=== PATIENT | female | born 1975 | race Asian ===

== ENCOUNTER 2024-04-12 09:46 | Day surgery (SDC) | payer OTHER ==
[~2024-04-12] VITALS: Ht 154.9 cm; Wt 52.3 kg
[~2024-04-12 09:46] MED LIST: CLARITIN10 MG PO; DOXYCYCLINE HY100 MG PO; IBLOOD GLUCOSE TEST STRIP 1 EA TEST VI PRN; LACTATED RINGER'S 1,000 ML IV SCH; LEVOTHYROXINE25 MCG PO; LIDOCAINE HCL 1% 5 ML SDV INJ ONE; MIDAZOLAM HCL 5 MG/5 ML VIAL IV PRN; NORCO 5-325 TA1 EACH PO; PRENATAL ONE T1 EACH PO; ZOFRAN4 MG PO; fentaNYL citrate 100 MCG/2 ML VIAL IV PRN
[2024-04-12 10:04] VITALS: BP 146/78
[2024-04-12] MEDS ORDERED: MIDAZOLAM HCL 5 MG/5 ML VIAL ONE (11:19)
[2024-04-12] MEDS ORDERED: fentaNYL citrate 100 MCG/2 ML VIAL ONE (11:19)
--- NOTE | 2024-04-12 12:46 | NUR ---
04/12/24 1246 Tarsha Lancaster 1232- PT ARRIVES TO THE PACU WITH A NATURAL AIRWAY. NC IN PLACE WITH 2L O2. PT LAYING ON LEFT SIDE. ABDOMEN IS SOFT AND NONDISTENDED. LR INFUSING IN HER LEFT FOREARM. RESP EVEN AND UNLABORED. PT DOES NOT RESPOND TO VERBAL AND TACTILE STIMULI. ALL MONITORS PUT IN PLACE. 1234- PT PASSING GAS OFF AND ON. PT STILL NONREACTIVE TO VERBAL STIMULI. 1244- PT PASSING LARGE AMOUNTS OF GAS. PT NONREACTIVE TO VERBAL STIMULI. VSS.
[2024-04-12 13:01] VITALS: BP 100/59
--- NOTE | 2024-04-15 11:13 | OR ---
[facility] [address] [place], [place] [address] Signed DATE OF OPERATION: 04/12/2024 SURGEON: Jeremy Chase MD PREOPERATIVE DIAGNOSIS: Family history of colon cancer (father). POSTOPERATIVE DIAGNOSIS: Normal colon to cecum. PROCEDURE: Total colonoscopy to cecum. ANESTHESIA: Intravenous sedation fentanyl 150 mcg and Versed 4 mg. INDICATION: This 48-year-old Swedish woman is a patient of CHAPO Rossi. She is known to have a family history of colon cancer in her father who at the age of 74 with colon cancer. It is uncertain when he contracted the disease. She has no symptoms of bleeding, diarrhea or constipation. No known prior history of colonoscopy that I am aware of. She understands the risk of bleeding, infection, and perforation related to colonoscopy and wished to proceed with screening colonoscopy. FINDINGS: The prep was good. Complete colonoscopy was undertaken of the cecum. Full intubation of the cecum was noted. There was no evidence of polyps, diverticular formation, colitis, or cancer. PROCEDURE IN DETAIL: The patient was brought to the endoscopy suite and placed in lateral decubitus position, given intravenous sedation to the point of slurred speech and nystagmus. Digital rectal examination was normal. An Olympus video colonoscope was passed in the rectum and manipulated throughout the colon ultimately intubating the cecum itself. The ileocecal valve and appendiceal orifice were normal. Scope was withdrawn from that point and examination undertaken showed no evidence of polyps, diverticular formation, colitis, or cancer. Retroflexed view of the rectum was normal as well. The scope was removed. The patient was taken to the recovery room in good condition. Electronically Signed By: JEREMY CHASE MD 04/15/24 1113 PATIENT NAME: BECCA DASILVA OPERATIVE REPORT DATE OF : 75 REPORT #: [id number] PHYSICIAN: JEREMY CHASE MD PCP: WENDI CARDENAS REPORT IS CONFIDENTIAL AND NOT TO BE RELEASED WITHOUT AUTHORIZATION [facility] [address] [place], [place] [address], [place] [address] Signed CONCLUDING DIAGNOSIS: Normal colon to cecum. PLAN: Recommend repeat colonoscopy in 5 years based on family history, sooner if symptoms should occur. MD JOHN Singletary/MODL /[id number] cc: Wendi Cardenas PA-C Copies: WENDI CARDENAS ~ Electronically Signed By: JEREMY CHASE MD 04/15/24 1113 PATIENT NAME: BECCA DASILVA OPERATIVE REPORT DATE OF : 75 REPORT #: [id number] PHYSICIAN: JEREMY CHASE MD PCP: WENDI CARDENAS PAC REPORT IS CONFIDENTIAL AND NOT TO BE RELEASED WITHOUT AUTHORIZATION
== END 2024-04-12 13:15 | disposition home or self-care (01) ==
LOC: DS 09:46
PROVIDERS: ATTEND Surgery
PROC: 0DJD8ZZ Inspection of Lower Intestinal Tract, Via Natural or Artificial Opening Endoscopic (ICD-10-PCS; principal; 2024-04-12 10:45)
DX: Z12.11 Encounter for screening for malignant neoplasm of colon (principal); E03.9 Hypothyroidism, unspecified; Z79.890 Hormone replacement therapy; Z80.0 Family history of malignant neoplasm of digestive organs
CPT/HCPCS: 84703; 99153; G0500; J2250; J3010; J7121

== ENCOUNTER 2024-08-28 19:37 | Emergency (ER) | payer OTHER ==
[~2024-08-28] VITALS: Ht 154.9 cm; Wt 52.0 kg
[~2024-08-28 19:37] MED LIST changes: -IBLOOD GLUCOSE TEST STRIP 1 EA TEST VI PRN; -LACTATED RINGER'S 1,000 ML IV SCH; -LIDOCAINE HCL 1% 5 ML SDV INJ ONE; -MIDAZOLAM HCL 5 MG/5 ML VIAL IV PRN; -fentaNYL citrate 100 MCG/2 ML VIAL IV PRN
[2024-08-28] MEDS ORDERED: prednisoLONE ACETATE 1% 10 ML BTL OS ONE (20:15)
[2024-08-28 20:30] VITALS: BP 162/82
== END 2024-08-28 20:31 | disposition home or self-care (01) ==
LOC: ED 19:37
DX: H11.32 Conjunctival hemorrhage, left eye (principal); Z79.899 Other long term (current) drug therapy
CPT/HCPCS: 99282

== ENCOUNTER 2025-01-08 05:13 | Inpatient (IN) | payer OTHER ==
[~2025-01-08] VITALS: Ht 154.9 cm; Wt 58.6 kg
[2025-01-08 06:14] LABS: LACTIC ACID, BLOOD 2.0 mmol/L (0.4-2.0)
[2025-01-08 06:16] LABS: INFLUENZA B NAA NEGATIVE (NEGATIVE); RESPIRATORY SYNCYTIAL VIR NAA NEGATIVE (NEGATIVE)
[2025-01-08 06:18] LABS: BASOPHILS 0.3 % (0.1-1.2); EOSINOPHILS 1.7 % (0.7-5.8); LYMPHOCYTES 11.5 % (19.3-51.7); MCH 30.7 PG (25.6-32.2); MCHC 33.0 g/dL (32.2-35.5); MCV 92.8 fL (79.4-94.8); MONOCYTES 7.9 % (4.7-12.5); NEUTROPHILS 78.2 % (34.0-71.1); RBC 5.02 M/uL (3.93-5.22)
[2025-01-08 06:28] LABS: ALT (SGPT) 28.0 U/L (14-59); AST (SGOT) 35.0 U/L (15-37); GLOMERULAR FILTRATION RATE,EST 84.0 mL/min (>60); PROTEIN, TOTAL 7.4 g/dL (6.4-8.2); UREA NITROGEN 10.0 mg/dL (7-18)
[2025-01-08] MEDS ORDERED: SODIUM CHLORIDE 0.9% 1,000 ML IV SCH ×2 (06:30→10:15)
[2025-01-08] MEDS ORDERED: AZITHROMYCIN 500 MG in DEXTROSE 5% 250 ML IV ONE (06:30)
[2025-01-08] MEDS ORDERED: ACETAMINOPHEN 325 MG TAB PO PRN (10:15)
[2025-01-08] MEDS ORDERED: BENZONATATE 100 MG CAP PO PRN (10:15)
[2025-01-08] MEDS ORDERED: guaiFENesin 600 MG TABCR PO PRN (10:15)
[2025-01-08 10:44] VITALS: BP 155/92
[2025-01-08] MEDS ORDERED: ALBUTEROL SULFATE 0.083% 3 ML VIAL ONE (11:03)
[2025-01-08] MEDS ORDERED: VENTOLIN HFA18 GM INH (11:05)
[2025-01-08] MEDS ORDERED: MONTELUKAST SOD10 MG PO (11:06)
[2025-01-08] MEDS ORDERED: ALBUTEROL SULFATE 0.083% 3 ML VIAL INH PRN (11:15)
[2025-01-08] MEDS ORDERED: PHARMACY RENAL DOSE ADJUSTMENT 1 DOSE MISC PO SCH (12:00)
--- NOTE | 2025-01-08 13:17 | NUR ---
MED REC COMPLETE
--- NOTE | 2025-01-08 13:57 | NUR ---
PT LAYING UP IN BED AT THIS TIME, PT TEMP WAS ELEVATED AND WAS GIVEN PRN TYLENOL (SEE EMAR). PT TOLERATED WELL AND HAS NO FURTHER CONCERNS AT THIS TIME.
--- NOTE | 2025-01-08 15:18 | NUR ---
ALERT AND ORIENTED IN BED. OXYGEN IN PLACE. SPOUSE IN ROOM, BOTH ANSWER QUESTIONS. DEMOGRAPHICS VERIFIED. PATIENT LIVES IN HOUSE WITH , NO STAIRS. SHE HAS NO DME. PATIENT DRIVES. BOTH PATIENT AND SPOUSE DENY ANY FINANCIAL DIFFICULTIES AT THIS TIME. DENY CM NEEDS. PLANNING OT RETURN HOME WHEN MEDICALLY READY.
[2025-01-08 16:00] VITALS: BP 127/67
[2025-01-08 16:01] VITALS: BP 127/67
[2025-01-08 17:44] VITALS: BP 123/68
--- NOTE | 2025-01-08 17:45 | NUR ---
HOURLY ROUNDING. PATIENT HUSBAMD AT BEDSIDE, NO REQUEST FROM PATIENT AT THIS TIME. PATIENT ASKED FOR STRAWS FOR THE PATIENT TO DRINK HER MILK, STRAW FOR MILK WAS GIVEN. CALL LIGHT PLACED WITHIN REACH
[2025-01-08 18:08] VITALS: BP 123/68
--- NOTE | 2025-01-08 18:33 | NUR ---
PT LAYING IN BED AT THIS TIME, PT DENIES NEEDS AT THIS TIME AND INFORMED ABOUT SHIFT CHANGE. PT CALL LIGHT IN REACH AND IN ROOM AT THIS TIME.
[2025-01-08 20:19] VITALS: BP 151/82
[2025-01-08] MEDS ORDERED: MELATONIN 3 MG TAB PO PRN (21:00)
--- NOTE | 2025-01-08 21:27 | NUR ---
PT C/O WORSENED SHORTNESS OF BREATH, WORK OF BREATHING INCREASED. CRACKLES THROUGHOUT. RT NOTIFIED. DISCUSSED WITH MD AND RT, POSSIBLY FLUID UP. STOPPED IV FLUIDS. BREATHING TREATMENT ADMINISTERED. CALL LIGHT IN REACH
--- NOTE | 2025-01-08 23:12 | NUR ---
PT RESTING IN BED WITH EYES CLOSED, RISE AND FALL OF CHEST OBSERVED. CALL LIGHT IN REACH
--- NOTE | 2025-01-08 23:26 | EKG ---
[facility] [address] [facility] [place] [address] Signed Sinus tachycardia Otherwise normal ECG No previous ECGs available Confirmed by Prabhakar Ruano MD () on 01/08/2025 11:26:00 PM Electronically Signed By: PRABHAKAR RUANO MD 01/08/25 2326 PATIENT NAME: BECCA DASILVA [facility] Electrocardiogram DATE OF : 75 PHYSICIAN: PRABHAKAR RUANO MD REPORT #: [id number] REPORT IS CONFIDENTIAL AND NOT TO BE RELEASED WITHOUT AUTHORIZATION
[2025-01-09] VITALS (10 sets, daily range): BP systolic 131–143; BP diastolic 72–81
--- NOTE | 2025-01-09 00:14 | NUR ---
PT RESTING IN BED WITH EYES CLOSED, SPO2 95% ON 4L. [facility], SUPPORTIVE INROOM.
--- NOTE | 2025-01-09 01:27 | NUR ---
GIVEN TYLENOL AND MUCINEX PER REQUEST. ALSO PROVIDED WARM BLANKET. NO OTHER NEEDS. TITRATED O2 DOWN TO 3L. NO OTHER NEEDS, [facility]
--- NOTE | 2025-01-09 03:21 | NUR ---
PT RESTING WITH EYES CLOSED, RISE AND FALL OF CHEST OBSERVED. CALL LIGHT IN REACH
[2025-01-09 05:21] LABS: BASOPHILS 0.2 % (0.1-1.2); EOSINOPHILS 0.6 % (0.7-5.8); LYMPHOCYTES 10.9 % (19.3-51.7); MCH 30.4 PG (25.6-32.2); MCHC 32.8 g/dL (32.2-35.5); MCV 92.9 fL (79.4-94.8); MONOCYTES 7.5 % (4.7-12.5); NEUTROPHILS 80.5 % (34.0-71.1); RBC 4.37 M/uL (3.93-5.22)
--- NOTE | 2025-01-09 05:22 | NUR ---
VITALS, AM ASSESSMENT. PT REPORTS WOB MILDLY EASIER. STILL SATTING 91% ON 4L. NO OTHER NEEDS, CALL LIGHT IN REACH
[2025-01-09 05:39] LABS: ALT (SGPT) 44.0 U/L (14-59); AST (SGOT) 47.0 U/L (15-37); GLOMERULAR FILTRATION RATE,EST 112.0 mL/min (>60); PHOSPHORUS, INORGANIC 3.0 mg/dL (2.5-4.9); PROTEIN, TOTAL 6.9 g/dL (6.4-8.2); UREA NITROGEN 8.0 mg/dL (7-18)
--- NOTE | 2025-01-09 06:33 | NUR ---
CALL LIGHT ANSWERED. SPO2 90% WITH 4L OXYGEN BY NC IN PLACE AT REST. SBA TO BSC FOR VOID, TITRATED OXYGEN TO 7L NC TO MAINTAIN SATURATIONS WNL, SATURATIONS 87% WITH 7L OXYGEN IN PLACE WHEN pt TRANSFERS BACK TO BED. ALLOWED TO REST, 5L OXYGEN BY NC IN PLACE, SPO2 91%. BREATHING TREATMENT STARTED BY THIS RN AT THIS TIME RT IN ER. PRIMARY RN NOTIFIED. TOOTHBRUSH PROVIDED FOR pt TO COMPLETE ORAL CARE PER REQUEST. AT BEDSIDE.
--- NOTE | 2025-01-09 06:43 | NUR ---
CALL LIGHT ANSWERED. BREATHING TREATMENT COMPLETE, SPO2 NOW 93% WITH 5L OXYGEN BY NC, pt STATES THAT SHE FEELS BETTER. pt AND DENY ADDITIONAL NEEDS.
--- NOTE | 2025-01-09 07:00 | NUR ---
CALL LIGHT ANSWERED. pt REQUESTING TYLENOL, COMPLAINS OF HEADACHE AND THINKS SHE MIGHT HAVE A FEVER. AFEBRILE AT THIS TIME. PRN TYLENOL ADMINISTERED. OXYGEN TITRATED TO 4L, SPO2 93%.
[2025-01-09] MEDS ORDERED: MAGNESIUM CHLORIDE 64 MG TABCR PO ONE (08:00)
--- NOTE | 2025-01-09 08:07 | NUR ---
HOURLY ROUNDING. PATIENT CALLED, AND REPORTED PATIENT IS FEELING WEAK. I ASKED PATIENT IF SHE IS FEELING NAUSEA OR IN PAIN, RESPONSE WAS NO JUST VERY WEAK. CHARGE NURSE HAS BEEN NOTIFIED. VITALS HAVE BEEN COMPLETED
--- NOTE | 2025-01-09 08:15 | NUR ---
PATIENT 99.4 AFTER TYLENOL, VERBALIZES NOT FEELING WELL. 4L [address] RUANO IN TO SEE PATIENT.
--- NOTE | 2025-01-09 08:54 | NUR ---
HOURLY ROUNDING. PATIENT NEEDED TO USE THE RESTROOM. PATIENT 02 DESTATED. NURSE HAS BEEN NOTIFIED
[2025-01-09] MEDS ORDERED: AZITHROMYCIN 500 MG in DEXTROSE 5% 250 ML IV SCH (09:00)
[2025-01-09] MEDS ORDERED: MONTELUKAST SODIUM 10 MG TAB PO SCH (09:00)
[2025-01-09] MEDS ORDERED: LEVOTHYROXINE SODIUM 25 MCG TAB PO SCH (09:00)
[2025-01-09] MEDS ORDERED: ENOXAPARIN SODIUM 40 MG/0.4 ML SYR SUB-Q SCH (09:00)
--- NOTE | 2025-01-09 09:56 | NUR ---
UR CLINICAL REVIEW: LAURA-JAZMINE MCG REVIEW MEETS INPT FOR [facility] WITH NEW NEED FOR SUPPLEMENT OXYGEN [facility] INPT 01/08/25 @ 1010 ORDER MATCHES REG CLINICAL FAXED TO [employer] [facility] FOR AUTH REVIEW ANTICIPATE 1-2 DAY OF TREATMENT PRIOR TO DC 01/10/25 DISCHARGE REVIEW
--- NOTE | 2025-01-09 10:04 | NUR ---
PT NOT AVAILABLE FOR VISIT. PROVIDED PRAYER.
--- NOTE | 2025-01-09 10:15 | NUR ---
PT IN CHAIR AT THIS TIME PT EDUCATED ON DIAGNOSIS, PT GIVEN ABX IV ORDERD AND IS WITH RT DOING A BREATHING TREATMENT. PT TOLERATING WELL CALL LIGHT IN REACH.
[2025-01-09] MEDS ORDERED: IBUPROFEN 600 MG TAB PO PRN (12:15)
--- NOTE | 2025-01-09 12:15 | NUR ---
PT SITTING UP IN CHAIR AT THIS TIME, PT DENIES ANY CURRENT NEEDS. PT IN ROOM SITTING ON COUCH. PT HAS 4L NC IN PLACE AT THIS TIME WITH CALL LIGHT IN REACH.
--- NOTE | 2025-01-09 12:37 | NUR ---
NO KNOWN CM NEEDS. PLAN TO DC TO HOME WHEN MEDICALLY READY.
--- NOTE | 2025-01-09 13:08 | NUR ---
HOURLY ROUNDING. PATIENT SITTING IN RECLINER, SHE ATE MORE FOOD COMPARED TO HER LUNCH. NO REQUEST FROM PATIENT AT THSI TIME
--- NOTE | 2025-01-09 13:50 | NUR ---
REPORT RECIEVED FROM BRODERICK JULES. PATIENT SITTING UP IN HER CHAIR AND REPORTING 5/10 "BODY ACHES". TEMP TAKEN AND WAS 98.5, WARM BLANKETS PROVIDED.
[2025-01-09] MEDS ORDERED: ALBUTEROL/IPRATROPIUM 3 ML NEB INH SCH (14:00)
--- NOTE | 2025-01-09 14:10 | NUR ---
PATIENT MEDICATED PER EMAR FOR BODY ACHE PAIN. PATIENT WITHOUT FURTHER NEEDS AT THIS TIME. CALL LIGHT AND PERSONAL BELONGINGS ARE WITHIN REACH.
--- NOTE | 2025-01-09 16:03 | NUR ---
PATIENT SITTING UP IN CHAIR WITH HER AT BEDSIDE. PATIENT DENIES ANY NEEDS AT THIS TIME. CALL LIGHT AND PERSONAL BELONGINGS ARE WITHIN REACH.
--- NOTE | 2025-01-09 17:15 | NUR ---
PATIENT SITTING UP IN HER CHAIR WITH HER AT BEDSIDE. PATIENT WITHOUT ANY NEEDS AT THIS TIME. CALL LIGHT AND PERSONAL BELONGINGS ARE WITHIN REACH.
--- NOTE | 2025-01-09 18:21 | NUR ---
PATIENT IS IN HER CHAIR AT THIS TIME, RESEARCH PROGRAM INTERNSHIP CHARTED VITALS AND I&O'S, CALL LIGHT WITH IN REACH AND IN THE ROOM. NOTHING ELSE NEEDED AT THIS TIME.
--- NOTE | 2025-01-09 18:57 | NUR ---
PATIENT MEDICATED PER EMAR. PATIENT SITTING UP IN CHAIR WATCHING A MOVIE ON HER LAPTOP. PATIENT IV FLUSHED WITH 10ML OF NS, DRESSING IS INTACT. ABX INFUSING PER ORDER. PATIENT WITHOUT FURTHER NEEDS AT THIS TIME. CALL LIGHT AND PERSONAL BELONGINGS ARE WITHIN REACH.
--- NOTE | 2025-01-09 20:22 | NUR ---
STRAIGHT LINE EDGER OBTAINED VITALS. NO NEW I&O AT THIS TIME. PT STATES NO NEEDS AND CALL LIGHT WITHIN REACH. IN ROOM.
--- NOTE | 2025-01-09 20:53 | NUR ---
CALL LIGHT ANSWERED. PT STATED SHE FELT LIKE SHE HAD A FEVER AND COMPLAINED OF A HEADACHE. TRACK LAMINATING MACHINE TENDER OBTAINED PT ORAL TEMP. ORAL TEMP IS 98.6. RN NOTIFED.
--- NOTE | 2025-01-09 20:54 | NUR ---
PATIENT SITTING UPRIGHT IN CHAIR, EYES OPEN, CHEST RISE EQUAL AND UNLABORED. PATIENT DENIES CONCERNS AT THIS TIME. PATIENT BELONGINGS AND CALL LIGHT IN REACH.
--- NOTE | 2025-01-09 21:54 | NUR ---
PATIENT REPORTING 5/10 HEADACHE. PRN PAIN MEDICATION ADMINISTERED PER PATIENT REQUEST. PATIENT UP FROM CHAIR USING MINIMAL SBA TO BED. PATIENT OSCAR WELL. PATIENT HAS NO FURTHER NEEDS AT THIS TIME. CALL LIGHT IN REACH.
--- NOTE | 2025-01-09 22:00 | NUR ---
PATIENT LAYING IN BED, PRESENT. EYES OPEN, CHEST RISE EQUAL AND UNALBORED. ASSESSMENT COMPLETE. PATIENT REPORTS 5/10 HEAD PAIN, PRN MEDICATION ADMINISTERED. PATIENT DENIES FURTHER CONCERNS. PERSONAL BELONGINGS AND CALL LIGHT IN REACH.
--- NOTE | 2025-01-09 23:52 | NUR ---
PATIENT IN BED, EYES CLOSED, CHEST RISE EQUAL AND UNLABORED. CPOX IN PLACE AND IN NORMAL LIMITS. NO APPARENT CONCERNS NOTED AT THIS TIME, IN ROOM WELL. CALL LIGHT AND PERSONAL ITEMS IN REACH.
[2025-01-10] VITALS (11 sets, daily range): BP systolic 120–141; BP diastolic 62–88
--- NOTE | 2025-01-10 02:31 | NUR ---
PATIENT IN BED WITH EYES OPEN, CHEST RISE EQUAL AND UNLABORED. ASSESSMENT COMPLETED, SCHEDULED MEDICATIONS ADMINISTERED, PATIENT TOLERATED WELL. PATIENT USED ACAPELLA WITH RN IN ROOM. PATIENT REPORTS 4/10 PAIN AND REQUESTS MEDICATION. PRN MEDICATION ADMINISTERED. PATIENT DENIES FURTHER CONCERNS AT THIS TIME. CALL LIGHT AND PERSONAL BELONGINGS IN REACH. CPOX IN PLACE.
--- NOTE | 2025-01-10 04:00 | NUR ---
PATIENT IN BED WITH HOB RAISED, EYES OPEN, CHEST RISE EQUAL AND UNLABORED, CPOX IN PLACE. PATIENT DENIES CONCERNS AT THIS TIME, PRESENT AT BEDSIDE. CALL LIGHT AND PERSONAL BELONGINGS IN REACH.
[2025-01-10 05:28] LABS: BASOPHILS 0.2 % (0.1-1.2); EOSINOPHILS 1.8 % (0.7-5.8); LYMPHOCYTES 10.6 % (19.3-51.7); MCH 30.3 PG (25.6-32.2); MCHC 32.6 g/dL (32.2-35.5); MCV 93.0 fL (79.4-94.8); MONOCYTES 7.3 % (4.7-12.5); NEUTROPHILS 79.9 % (34.0-71.1); RBC 4.45 M/uL (3.93-5.22)
[2025-01-10 05:44] LABS: ALT (SGPT) 63.0 U/L (14-59); AST (SGOT) 58.0 U/L (15-37); GLOMERULAR FILTRATION RATE,EST 108.0 mL/min (>60); PROTEIN, TOTAL 7.1 g/dL (6.4-8.2); UREA NITROGEN 7.0 mg/dL (7-18)
--- NOTE | 2025-01-10 06:11 | NUR ---
PATIENT IN BED WITH HOB RAISED, EYES OPEN, CHEST RISE EQUAL AND UNLABORED. PATIENT DENIES CONCERNS AT THIS TIME. CPOX IN PLACE. IV FLUIDS INFUSING WITHOUT DIFFICULTY. PERSONAL ITEMS AND CALL LIGHT IN REACH.
--- NOTE | 2025-01-10 07:26 | NUR ---
REPORT RECIEVED FROM BRODERICK ADHIKARI AND BRODERICK GANNON. PATIENT RESTING IN BED WITH HER EYES CLOSED. EVEN AND UNLABORED RESPIRATIONS NOTED. PATIENT IS 95% ON 5L NC, CPOX AT BEDSIDE. CALL LIGHT AND PERSONAL BELONGINGS ARE WITHIN REACH.
--- NOTE | 2025-01-10 07:59 | NUR ---
DECREASED O2 TO 4 LPM.
--- NOTE | 2025-01-10 08:08 | NUR ---
RT AT BEDSIDE. FRESH COFFEE PROVIDED TO PATIENT'S AND FRESH ICE WATER PROVIDED TO PATIENT. CALL LIGHT AND PERSONAL BELONGINGS ARE WITHIN REACH.
--- NOTE | 2025-01-10 08:16 | NUR ---
PATIENT IN BED AT THIS TIME. TACK CUTTER OFFERED PATIENT TO GET IN CHAIR FOR BREAKFAST, PATIENT REFUSED. CALL LIGHT WITHIN REACH, NO FURTHER NEEDS AT THIS TIME.
--- NOTE | 2025-01-10 08:34 | NUR ---
PATIENT IN BED AT THIS TIME. LPN MEDICAL ASSISTANT ASSISTED PATIENT TO BATHROOM AND THEN TO CHAIR. LPN MEDICAL ASSISTANT CHANGED PATIENTS LINENS. CALL LIGHT WITHIN REACH, NO FURTHER NEEDS.
--- NOTE | 2025-01-10 09:15 | NUR ---
PATIENT MEDICATED PER EMAR. PATIENT REPORTS PAIN WITH IV INFUSION AND STATES "THEY MADE IT GO SLOWER YESTERDAY AND IT FELT BETTER". IV ABX RATE SLOWED DOWN TO 150ML/HR, PATIENT TOLERATING WELL. GEORGETTE WITH PHARMACY NOTIFIED AND STATES IT'S OKAY TO INFUSE ABX AT A SLOWER RATE. PATIENT WITH AT BEDSIDE WITHOUT ANY NEEDS. CALL LIGHT AND PERSONAL BELONGINGS ARE WITHIN REACH. PATIENT IS 91% ON 4L NC, CPOX AT BEDSIDE.
--- NOTE | 2025-01-10 10:12 | NUR ---
PATIENT IN BED AT THIS TIME. INVESTMENT UNDERWRITER CHARTED VITALS AND I&O'S. CALL LIGHT WITHIN REACH, NO FURTHER NEEDS AT THIS TIME.
--- NOTE | 2025-01-10 10:15 | NUR ---
NEXT ABX STARTED, INFUSING AT 150ML/HR, PATIENT TOLERATING WELL. PATIENT WITH HER AT BEDSIDE AND WITHOUT ANY NEEDS AT THIS TIME. CALL LIGHT AND PERSONAL BELONGINGS ARE WITHIN REACH. PATIENT IS 92% ON 4L NC, CPOX AT BEDSIDE.
--- NOTE | 2025-01-10 10:20 | NUR ---
Spoke with Nolberto. She denies needs. Feeling better today, but feels very weak. Spouse in room.
--- NOTE | 2025-01-10 11:07 | NUR ---
OT AND RT IN WORKING WITH PATIENT
--- NOTE | 2025-01-10 11:53 | NUR ---
PATIENT ABX STARTED AT THIS TIME. ABX STARTED LATE DUE TO PREVIOUS ABX INFUSION RATE SLOWED DOWN DUE TO PATIENT NOT TOLERATING ORDERED RATE. PATIENT WITHOUT FURTHER NEEDS AT THIS TIME. PATIENT AT BEDSIDE. CALL LIGHT AND PERSONAL BELONGINGS ARE WITHIN REACH.
--- NOTE | 2025-01-10 12:37 | NUR ---
DISCHARGE REVIEW: CONTINUED NEED FOR OXYGEN, IV ANTIBIOTICS, CULTURES PENDING. CHEST CT TO BE COMPLETED TODAY. PLANS TO DC TO HOME WHEN MEDICALLY READY. ANTICIPATING 1-2 MORE DAYS INPT CARE. POTENTIAL DC 01/11-01/12/25 CT SCAN TO BE COMPELTED TODAY, RESPIRATORY THERAPY INVOLVED IN CARE.
--- NOTE | 2025-01-10 12:42 | NUR ---
pt sitting up in chair with in room. pt c/0 headache, med given as requested. no other requests at this time. call light within reach.
--- NOTE | 2025-01-10 13:12 | NUR ---
PATIENT IS IN HER CHAIR AT THIS TIME, IN THE ROOM, MARICHUY PEREZ AND I CHARTED VITALS AND I&O'S, CALL LIGHT WITH IN REACH AND NOTHING ELSE NEEDED AT THIS TIME.
--- NOTE | 2025-01-10 13:26 | NUR ---
PATIENT REPORTS STILL HAVING A HEADACHE WITHOUT ANY RELIEF FROM PREVIOUS MEDICATION ADMINISTRATION. PRN TYLENOL GIVEN AT THIS TIME. PATIENT DENIES ANY VISUAL CHANGES. PATIENT AND WITHOUT FURTHER NEEDS AT THIS TIME. PATIENT IS 94% ON 4L NC, CPOX AT BEDSIDE. CALL LIGHT AND PERSONAL BELONGINGS ARE WITHIN REACH.
--- NOTE | 2025-01-10 14:45 | NUR ---
PATIENT STILL WAITING FOR CT. IMAGING CALLED AND STATES THEY HAVE BEEN BUSY WITH ER BUT WILL BE UP TO GET PATIENT "IN LIKE 10 MINUTES". PATIENT PLACED ON PORTABLE OXYGEN TANK FOR TRANSPORT TO IMAGING. PATIENT ALSO REPORT HER HEADACHE "IS GETTING BETTER". PATIENT AT BEDSIDE AND BOTH ARE WITHOUT ANY NEEDS AT THIS TIME. CALL LIGHT AND PERSONAL BELONGINGS ARE WITHIN REACH.
--- NOTE | 2025-01-10 14:57 | NUR ---
VISITED WITH DURING SPIRITUAL CARE ROUNDS. PT NOT AVAILABLE FOR VISIT. SENIOR ANALYTIC CONSULTANT PROVIDED SUPPORTIVE PRESENCE, PRAYER. DECLINED JET DYEING MACHINE TENDER VISIT FOR TODAY.
--- NOTE | 2025-01-10 15:55 | NUR ---
PATIENT SITTING UP IN HER CHAIR WITH HER AT BEDSIDE. PATIENT DENIES ANY PAIN AT THIS TIME. PATIENT IS 95% ON 3L NC, CPOX AT BEDSIDE. PATIENT WITHOUT FURTHER NEEDS AT THIS TIME. CALL LIGHT AND PERSONAL BELONGINGS ARE WITHIN REACH.
--- NOTE | 2025-01-10 17:40 | NUR ---
PATIENT REPORTING FEELING HER "HEADACHE COMING ON AGAIN". LET PATIENT KNOW THAT PRN MEDICATIONS AREN'T DUE FOR ANOTHER HOUR, BUT WILL BRING THEM IN WHEN THEY ARE DUE. OFFERED PATIENT A HEAT OR ICE PACK, BUT PATIENT DECLINED. CRACKERS GIVEN TO PATIENT PER REQUEST. PATIENT AT BEDSIDE. PATIENT CONTINUES TO SAT AT 95% ON 3L NC, CPOX AT BEDSIDE. PATIENT WITHOUT FURTHER NEEDS AT THIS TIME. CALL LIGHT AND PERSONAL BELONGINGS ARE WITHIN REACH.
--- NOTE | 2025-01-10 18:21 | NUR ---
PATIENT IN BED AT THIS TIME. VOCATIONAL TRAINING INSTRUCTOR CHARTED VITALS AND I&O'S. CALL LIGHT WITHIN REACH, NO FURTHER NEEDS AT THIS TIME.
--- NOTE | 2025-01-10 18:30 | NUR ---
PATIENT MEDICATED PER EMAR. PATIENT IS 94% ON 3L NC, CPOX AT BEDSIDE. PATIENT WITHOUT FURTHER NEEDS AT THIS TIME. CALL LIGHT AND PERSONAL BELONGINGS ARE WITHIN REACH.
--- NOTE | 2025-01-10 19:39 | NUR ---
PATIENT SITTING UPRIGHT IN CHAIR, IV INFUSION COMPLETED. SITE SALINE LOCKED WITHOUT ISSUE. PATIENT DENIES CONCERNS AT THIS TIME. CPOX IN PLACE. PERSONAL BELONGINGS AND CALL LIGHT IN REACH.
[2025-01-10] MEDS ORDERED: BUDESONIDE 0.5 MG/2 ML VIAL INH SCH (20:00)
--- NOTE | 2025-01-10 20:45 | NUR ---
"MIGUEL" IS CURRENTLY ON A 3L NC W/ A BUBBLER. SHE COMPLETED THE DUONEB FOLLOWED BY THE DOUBLE DOSE OF PULMICORT. THEN IPV WITH MUCOMYST, FOLLOWED BY CORNET LEVEL 5. "MIGUEL" HAS COPIOUS ORAL SECRETIONS DURING HER NEBULIZERS AND IPV.
--- NOTE | 2025-01-10 21:02 | NUR ---
PROGRAM CLERK OBTAINED VITALS AND INTAKE. NO NEW OUTPUT AT THIS TIME. PROGRAM CLERK SBA PT FROM CHAIR TO BED. PT STATES NO FURTHER NEEDS AT THIS TIME. CALL LIGHT WITHIN REACH AND IN ROOM.
--- NOTE | 2025-01-10 21:58 | NUR ---
PATIENT IN BED WITH HOB RAISED, EYES OPEN, CHEST RISE EQUAL AND UNLABORED, CPOX IN PLACE. ASSESSMENT COMPLETE, IV SITES ASSESSED AND FLUSHED. PATIENT DENIES CONCERNS AT THIS TIME. PERSONAL BELONGINGS, CALL LIGHT, INCENTIVE SPIROMETER AND ACCAPELA IN REACH.
[2025-01-11] VITALS (10 sets, daily range): BP systolic 113–136; BP diastolic 61–80
--- NOTE | 2025-01-11 00:11 | NUR ---
PATIENT IN BED, EYES CLOSED, CHEST RISE EQUAL AND UNLABORED. CPOX IN PLACE, INCENTIVE SPIROMETER AND ACCAPELA IN REACH. PERSONAL BELONGINGS AND CALL LIGHT IN REACH. AT BEDSIDE. NO APPARENT NEEDS NOTED AT THIS TIME.
--- NOTE | 2025-01-11 01:30 | NUR ---
CALL LIGHT ANSWERED. PATIENT IN BED WITH HOB RAISED, EYES OPEN, CHEST RISE EQUAL AND UNLABORED, CPOX IN PLACE. IS AND ACCAPELA, PERSONAL BELONGINGS AND CALL LIGHT IN REACH OF PATIENT. AT BEDSIDE. PATIENT REPORTS 4/10 HEAD PAIN, ADMINISTERED PRN MEDICATION ORDERED. VITAL SIGNS COMPLETE. PATIENT DENIES FURTHER CONCERNS AT THIS TIME.
--- NOTE | 2025-01-11 03:16 | NUR ---
CALL LIGHT ANSWERED. PATIENT REPORTS 4/10 HEADACHE PAIN. PRN PAIN MEDICATION ADMINISTERED PER PATIENT REQUEST. PATIENT HAS NO FURTHER NEEDS. CALL LIGHT IN REACH.
--- NOTE | 2025-01-11 04:05 | NUR ---
PATIENT IN BED, EYES CLOSED, CHEST RISE EVEN AND UNLABORED, CPOX IN PLACE. CALL LIGHT, IS, AND PERSONAL BELONGINGS WITHIN REACH. AT BEDSIDE. NO APPARENT NEEDS NOTED AT THIS TIME.
[2025-01-11 05:12] LABS: BASOPHILS 0.2 % (0.1-1.2); EOSINOPHILS 3.4 % (0.7-5.8); LYMPHOCYTES 10.9 % (19.3-51.7); MCH 30.6 PG (25.6-32.2); MCHC 32.7 g/dL (32.2-35.5); MCV 93.6 fL (79.4-94.8); MONOCYTES 8.9 % (4.7-12.5); NEUTROPHILS 76.4 % (34.0-71.1); RBC 4.21 M/uL (3.93-5.22)
[2025-01-11 05:30] LABS: ALT (SGPT) 37.0 U/L (14-59); AST (SGOT) 30.0 U/L (15-37); GLOMERULAR FILTRATION RATE,EST 107.0 mL/min (>60); PROTEIN, TOTAL 6.8 g/dL (6.4-8.2); UREA NITROGEN 9.0 mg/dL (7-18)
--- NOTE | 2025-01-11 05:33 | NUR ---
RESIDENTIAL PLUMBER OBTAINED VITALS AND I&O. ICE WATER REFILLED. PT STATES NO FURTHER NEEDS AT THIS TIME. CALL LIGHT WITHIN REACH AND IN ROOM.
--- NOTE | 2025-01-11 05:38 | NUR ---
PATIENT IN BED WITH HOB RAISED, EYES OPEN, CHEST RISE EQUAL AND UNLABORED. PATIENT DENIES CONCERNS AT THIS TIME. CPOX IN PLACE. PERSONAL BELONGINGS, CALL LIGHT, IS, AND ACCAPELA IN REACH OF PATIENT. AT BEDSIDE.
--- NOTE | 2025-01-11 07:33 | NUR ---
In with pt for introductions and to update white board at about 0655 hours. Pt is resting with eyes closed, supine in bed, breathing is regular, even, and non-labored. Call light in reach. Pt's visitor/family is resting on couch in room with back to the door. White board updated. Pt report received from BRODERICK Najera and BRODERICK Guerrero at about 0702 hours.
--- NOTE | 2025-01-11 08:14 | NUR ---
PATIENT IS IN HER BED AT THIS TIME, WAS HELPING HER BRUSH HER TEETH AND CORPORATE SAFETY DIRECTOR GOT PATIENT A WASH CLOTH TO WASH HER FACE, FRESH WATER AND SOME EXTRA STRAWS. CALL LIGHT WITH IN REACH AND NOTHING ELSE NEEDED AT THIS TIME.
--- NOTE | 2025-01-11 09:00 | NUR ---
While in with pt for medication administration, pt was receiving treatment from RT. Once that was complete, 1PA SBA as pt transferred from bed to chair. Pt complains only that her head hurts. I had encouraged her earlier during assessment to increas her water intake, which she stated she understands but states that getting up to go to the bathroom makes her tired. Offered to bring the BSC out if she does start having to void more often, then spoke with Silvino from RT. Silvino advised that we can increase her Oxygen via NC to 6lpm with activity and to give it a minute once we increase it before having her move so it can 'build up'. He would like her to be on 2 to 3 lpm while at rest. He advised this will allow her to work more with PT without causing her to get SOB so quickly. Pt advised of this update. at bedside. Pt was medicated with motrin per jacob.
--- NOTE | 2025-01-11 09:06 | NUR ---
PATIENT IS IN HER CHAIR AT THIS TIME, BRODERICK MCQUEEN ASSISTED HER TO THE CHAIR, PULLED OUT THE BEDSIDE COMMODE FOR HER. DIMPLING MACHINE OPERATOR ASSISTED BACK TO HER CHAIR AFTER, CAHRTED VITALS AND I&O'S, GOT FRESH WATER FOR PATIENT, IN ROOM. CALL LIGHT WITH IN REACH AND NOTHING ELSE NEEDED AT THIS TIME.
--- NOTE | 2025-01-11 09:38 | NUR ---
IV INFUSION COMPLETE. IV SITE FLUSHED WITH 10 ML NORMAL SALINE AND IS SALINE LOCKED. IV DRESSING IS CLEAN, DRY, AND INTACT. PT AND RT ARE IN THE ROOM AT THIS TIME AND GOING TO WORK WITH THE PATIENT. PATIENT IS IN THE ROOM. PATIENT AND FAMILY STATED NO FURTHER NEEDS AT THIS TIME. CALL LIGHT AND PERSONAL BELONGINGS ARE WITHIN REACH.
[2025-01-11] MEDS ORDERED: ALBUTEROL/IPRATROPIUM 3 ML NEB INH SCH (12:00)
--- NOTE | 2025-01-11 12:40 | NUR ---
No needs from . Per Dr. Velez, pt is not near or ready for dc due to her multifocal pneumonia.
--- NOTE | 2025-01-11 14:20 | NUR ---
PATIENT IN CHAIR AT THIS TIME. SENIOR GEOTECHNICAL ENGINEER CHARTED VITALS AND I&O'S. CALL LIGHT WITHIN REACH, NO FURTHER NEEDS AT THIS TIME.
[2025-01-11 15:10] LABS: BASE EXCESS, BLOOD GAS 2.3 mmol/L (-2-2); HCO3, BLOOD GAS 26.0 mmol/L (22-26); O2 SATURATION, BLOOD GAS 94.3 % (95.0-100.0); PCO2, BLOOD GAS 36.4 mmHg (35-45); PH, BLOOD GAS 7.46 (7.35-7.45); PO2, BLOOD GAS 64 mmHg (80-100); TOTAL CO2, BLOOD GAS 27.1
[2025-01-11 15:12] LABS: OXYGEN RECEIVED, BLOOD GAS 70%
[2025-01-11] MEDS ORDERED: FUROSEMIDE 20 MG TAB PO ONE (15:15)
--- NOTE | 2025-01-11 15:45 | NUR ---
PATIENT IS SITTING IN HER CHAIR WATCHING A SHOW ON HER IPAD WITH HER FEET UP. BREAKER TENDER OFFERED A SHOWER OR A BED BATH, SHE REFUSED AND SAID SHE JUST DOSENT HAVE ENOUGH ENERGY. AND ASKED IF SHE COULD TRY TOMORROW. BRODERICK MCQUEEN ASKED ME TO GET SCD'S AND THE MACHINE, NOW THEY ARE ON. IN ROOM, CALL LIGHT WITH IN REACH AND NOTHING ELSE NEEDED AT THIS TIME.
--- NOTE | 2025-01-11 16:40 | NUR ---
CALL PLACED TO [facility] TO ATTEMPT TRANSFER. THEY REPORT EXTREME OCCUPANCY AND INABILITY TO ACCEPT.
--- NOTE | 2025-01-11 16:46 | NUR ---
CALL TO [facility] TO ATTEMPT TRANSFER, THEY REPORT THEY WILL ONLY SPEAK TO THE PROVIDER. DR RUANO TO CALL. CALL TO [facility], THEY WILL CALL BACK WITH PROVIDER ON LINE AND DO HAVE BEDS
--- NOTE | 2025-01-11 17:07 | NUR ---
Pt reports she does not have periods because she is using a 5yr IUD for control (possibly Mirena), she has had 2 pregnancies and one live , one spontaneous .
[2025-01-11] MEDS ORDERED: HYDROCORTISONE SOD SUCCINATE 100 MG/2 ML VIAL IV ONE (17:30)
--- NOTE | 2025-01-11 18:47 | NUR ---
PATIENT IN CHAIR AT THIS TIME. ADJUNCT TEACHER CHARTED VITALS AND I&O'S. CALL LIGHT WITHIN REACH, NO FURTHER NEEDS AT THIS TIME.
--- NOTE | 2025-01-11 19:51 | NUR ---
MIGUEL IS CURRENTLY ON A 10L OXYMASK. SHE IS ABLE TO TOLERATE BREATHING TREATMENTS W/O INCREASED RR DISTRESS. HER RLL AND LLL OPEN UP AFTER BREATHING TREATMENT. CORNET LEVEL 5 DONE W/O DIFFICULTY OR INCREASED S/S OF RESPIRATORY DISTRESS. MIGUEL STATES THAT SHE FEELS WEAK AND MORE TIRED THAN YESTERDAY.
--- NOTE | 2025-01-11 19:55 | NUR ---
PATIENT SITTING UPRIGHT IN CHAIR, RT AND PRESENT IN ROOM. EYES OPEN, CHEST RISE EQUAL AND UNLABORED. CPOX IN PLACE. PATIENT DENIES CONCERNS AT THIS TIME. VITAL SIGNS OBTAINED. RT REMIANS IN ROOM AT THIS TIME.
--- NOTE | 2025-01-11 20:16 | NUR ---
REPORT GIVEN TO [facility] DEPARTMENT FOR PATIENT TRANSPORT. PATIENT OFF FLOOR AT THIS TIME.
--- NOTE | 2025-01-11 20:27 | NUR ---
THIS RN CALLED AND GAVE REPORT TO [facility] BROD[facility] PABON. SHE VERBALIZED UNDERSTANDING AND DENIES QUESTIONS AT THIS TIME.
[2025-01-11] MEDS ORDERED: guaiFENesin 600 MG TABCR PO SCH (21:00)
[2025-01-12] MEDS ORDERED: ENOXAPARIN SODIUM 40 MG/0.4 ML SYR SUB-Q SCH (09:00)
[2025-01-12 19:10] LABS: HIV-1 QNT BY NAAT (COPIES/ML) <20 cpy/mL (()); HIV-1 QNT BY NAAT INTERP Not Detected (Not Detected); HIV-1 QNT NAAT (LOG COPIES/ML) <1.30 (())
== END 2025-01-11 20:15 | disposition short-term general hospital (02) | DRG 871 ==
LOC: ED 05:13 → MS 10:25
PROVIDERS: Emergency Medicine; ADMIT Family Medicine; ATTEND Family Medicine
PROC: 3E03329 Introduction of Other Anti-infective into Peripheral Vein, Percutaneous Approach (ICD-10-PCS; principal; 2025-01-08)
PROC: 4A033R1 Measurement of Arterial Saturation, Peripheral, Percutaneous Approach (ICD-10-PCS; 2025-01-11)
DX: A41.9 Sepsis, unspecified organism (principal); J18.9 Pneumonia, unspecified organism; J96.01 Acute respiratory failure with hypoxia; E03.9 Hypothyroidism, unspecified; Z79.890 Hormone replacement therapy; Z79.899 Other long term (current) drug therapy; Z83.3 Family history of diabetes mellitus
CPT/HCPCS: 36415; 36600; 71045; 71260; 80053; 82803; 83605; 83735; 83880; 84100; 84484; 85025; 85379; 87040; 87502; 87536; 93005; 93010; 94640; 94667; 94668; 94762; 94799; 96374; 96375; 97162; 97166; 97530; 97535; 99285-25; A9270; J0456; J0696; J1650; J1720; J7030; J7060; Q9967; U0002

== ENCOUNTER 2025-02-08 16:31 | Emergency (ER) | payer OTHER ==
[~2025-02-08] VITALS: Ht 154.9 cm; Wt 52.0 kg
--- OUTSIDE RECORDS SUMMARY | ~2025-02-08 | XMS | Continuity of Care Document ---
Demographics + + + | Address | [address] | | | [place] [address] | + + + | Preferred Language | Unknown | + + + | Marital Status | Unknown | + + + | Rastafari Affiliation | Unknown | + + + | Race | | + + + | Ethnic Group | Not or | + + + Author + + + | Author | [place] | + + + | Organization | [place] | + + + | Address | [address] | | | [place] [address] | + + + | Phone | | + + + Care Team Providers + + + + | Care Side Boss Name | Role | Phone | + + + + Unavailable | Unavailable | + + + + Allergies No information. Encounters No information. Functional Status No information. Immunizations No information. Medications No information. Problems + + + + | date | description | facility | + + + + | 2025-01-16 16:01:35 | Unspecified bacterial | [facility] | | | pneumonia | | + + + + | 2025-01-16 16:01:35 | Acute respiratory failure | [facility] | | | with hypoxia | | + + + + Procedures No information. Results/Labs No information. Social History +--------+ + + | date | description | facility | +--------+ + + Vital Signs No information."
[~2025-02-08 16:31] MED LIST changes: +MONTELUKAST SOD10 MG PO; +VENTOLIN HFA18 GM INH
[2025-02-08] MEDS ORDERED: ALBUTEROL/IPRATROPIUM 3 ML NEB INH ONE (17:30)
[2025-02-08] MEDS ORDERED: ALBUTEROL/IPRATROPIUM 3 ML NEB ONE (17:31)
[2025-02-08 18:10] LABS: BASOPHILS 0.1 % (0.1-1.2); EOSINOPHILS 1.2 % (0.7-5.8); LYMPHOCYTES 17.0 % (19.3-51.7); MCH 30.7 PG (25.6-32.2); MCHC 32.5 g/dL (32.2-35.5); MCV 94.3 fL (79.4-94.8); MONOCYTES 6.2 % (4.7-12.5); NEUTROPHILS 75.2 % (34.0-71.1); RBC 4.95 M/uL (3.93-5.22)
[2025-02-08 18:29] LABS: ALT (SGPT) 47.0 U/L (14-59); AST (SGOT) 28.0 U/L (15-37); GLOMERULAR FILTRATION RATE,EST 107.0 mL/min (>60); PROTEIN, TOTAL 8.3 g/dL (6.4-8.2); UREA NITROGEN 12.0 mg/dL (7-18)
[2025-02-08] MEDS ORDERED: AMOX TR-K CLV1 EAC1 PO (20:10)
[2025-02-08] MEDS ORDERED: ZITHROMAX250 MG PO (20:10)
[2025-02-08] MEDS ORDERED: ALBUTEROL SULFATE 0.5% 2.5 MG/0.5 ML VIAL INH ONE (20:15)
[2025-02-08] MEDS ORDERED: AZITHROMYCIN 500 MG in DEXTROSE 5% 250 ML IV ONE (20:15)
[2025-02-08 22:45] VITALS: BP 127/64
== END 2025-02-08 22:45 | disposition home or self-care (01) ==
LOC: ED 16:31
PROVIDERS: Emergency Medicine
DX: J18.9 Pneumonia, unspecified organism (principal); E03.9 Hypothyroidism, unspecified; Z79.899 Other long term (current) drug therapy; Z79.890 Hormone replacement therapy
CPT/HCPCS: 36415; 71045; 71260; 80053; 83735; 84484; 84703; 85025; 94640; 94644; 96365; 96367; 96375; 99285-25; J0456; J0696; J2919; J7060; Q9967